=== PATIENT | female | born 1995 | race Caucasian/White ===

== ENCOUNTER 2017-10-13 12:20 | Emergency (ER) | payer OTHER ==
[2017-10-13 12:59] VITALS: O2SAT 97
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
[2017-10-13 14:21] VITALS: BP 109/70; PULSE 70
== END 2017-10-13 14:51 | disposition short-term general hospital (02) ==
LOC: ED 12:20
DX: T74.21XA Adult sexual abuse, confirmed, initial encounter (principal)
CPT/HCPCS: 99284

== ENCOUNTER 2017-11-20 20:59 | Emergency (ER) | payer OTHER ==
[~2017-11-20 20:59] MED LIST: STERILE WATER FOR INJECTION 20 ML IJ ONE
[2017-11-20] MEDS ORDERED: BACIGUENT PACKET TP ONE (22:02)
[2017-11-20] MEDS ORDERED: KEFZOL 1 GM IM ONE (22:02)
[2017-11-20 22:03] VITALS: BP 113/82; PULSE 96; O2SAT 100
[2017-11-20] MEDS ORDERED: BACTRIM DS TABLET PO ONE ×2 (22:03→22:09)
[2017-11-20] MEDS ORDERED: BACIGUENT PACKET ONE (22:09)
[2017-11-20] MEDS ORDERED: KEFZOL 1 GM ONE (22:09)
--- NOTE | 2017-11-20 22:10 | ERPHSYRPT ---
- History of Present Illness Time Seen by Provider: 11/20/17 21:26 Source: patient Exam Limitations: no limitations Patient Subjective Stated Complaint: states she thinks she has a spider bite to left side of neck and fifth digit left hand. Triage Nursing Assessment: has red raised area noted to left side of neck, no active drainage. also has red raised area to left fifth digit of hand. no drainage noted. Physician History: 22-year-old white female arrives with complaint of possible insect bite left side of neck and left hand symptoms for 4 days Patient states that she has a raised red lesion which is draining on the left side of her neck for 4 days also pain on her left hand dorsally at the left fifth MTP joint she has erythema to the left hand surrounding the MTP joint dorsally she states this is painful. She states she perhaps had abraded the lesion on the left side of her neck. She has not had fevers. Past medical history is negative past surgical history is negative. Social history positive tobacco use. Timing/Duration: day(s) Severity: moderate (4 days) Modifying Factors: Improves With: nothing Associated Symptoms: other (possible insect bites, raised lesion left side of neck which has opened, erythema raised area left dorsal hand fifth dorsal MCPjoint), No nausea, No vomiting, No abdominal pain, No shortness of breath, No heartburn, No diaphoresis, No cough, No chills, No chest pain, No fever, No headaches, No loss of appetite, No malaise, No rash, No syncope, No seizure, No weakness Allergies/Adverse Reactions: No Known Drug Allergies Allergy (Verified 11/20/17 21:20) Home Medications: Buspirone HCl 5 mg [Buspar 5 mg] 5 mg PO BIDPRN PRN 11/20/17 [History] Escitalopram Oxalate 10 mg [Lexapro 10 MG] 10 mg PO DAILY 11/20/17 [History] Trazodone HCl 50 mg [Desyrel 50 mg] 50 mg PO HS 11/20/17 [History] Hx Tetanus, Diphtheria Vaccination/Date Given: No Hx Influenza Vaccination/Date Given: No Hx Pneumococcal Vaccination/Date Given: No - Review of Systems Constitutional: No Fever, No Chills Eyes: No Symptoms Ears, Nose, & Throat: No Symptoms Respiratory: No Cough, No Dyspnea Cardiac: No Chest Pain, No Edema, No Syncope Abdominal/Gastrointestinal: No Abdominal Pain, No Nausea, No Vomiting, No Diarrhea Genitourinary Symptoms: No Dysuria Musculoskeletal: No Back Pain, No Neck Pain Skin: Other (raised lesion left side of neck, left dorsal hand symptoms for 4 days) Neurological: No Dizziness, No Focal Weakness, No Sensory Changes Psychological: No Symptoms Endocrine: No Symptoms All Other Systems: Reviewed and Negative - Past Medical History Pertinent Past Medical History: Yes Neurological History: No Pertinent History ENT History: No Pertinent History Cardiac History: No Pertinent History Respiratory History: No Pertinent History Endocrine Medical History: No Pertinent History Musculoskeletal History: No Pertinent History GI Medical History: No Pertinent History History: No Pertinent History Psycho-Social History: Anxiety, Depression Female Reproductive Disorders: No Pertinent History - Past Surgical History Past Surgical History: No Neuro Surgical History: No Pertinent History Cardiac: No Pertinent History Respiratory: No Pertinent History Gastrointestinal: No Pertinent History Genitourinary: No Pertinent History Musculoskeletal: No Pertinent History Female Surgical History: No Pertinent History - Social History Smoking Status: Current every day smoker How long have you smoked: 5 Exposure to second hand smoke: No Drug Use: none Patient Lives Alone: No - Female History Hx Last Menstrual Period: 11/15/17 Hx Now: No - Nursing Vital Signs Nursing Vital Signs: Initial Vital Signs Temperature 97.9 F 11/20/17 21:04 Pulse Rate 87 11/20/17 21:04 Respiratory Rate 16 11/20/17 21:04 Blood Pressure 107/70 11/20/17 21:04 O2 Sat by Pulse Oximetry 97 11/20/17 21:04 Pain Scale Pain Intensity 7 - Physical Exam General Appearance: mild distress Eye Exam: PERRL/EOMI, eyes nml inspection Neck Exam: normal inspection, supple, full range of motion, other (raised lesion1.5 1.0 cm left lateral neck erythematous open,no active drainage. Left dorsal hand slightly raised erythematous area overlying left dorsal M CP joint) Respiratory Exam: normal breath sounds, lungs clear, No respiratory distress Cardiovascular Exam: regular rate/rhythm, normal heart sounds, normal peripheral pulses Gastrointestinal/Abdomen Exam: soft, normal bowel sounds, No tenderness, No mass Back Exam: normal inspection, normal range of motion, No CVA tenderness, No vertebral tenderness Extremity Exam: normal inspection, normal range of motion, pelvis stable Neurologic Exam: alert Skin Exam: other (1 x 1.5 cm raised arealeft lateral neck with 0.3 cm opening no active draining, erythematous not hot, left hand erythema overlying left MCP joint #5 dorsally) Lymphatic Exam: No adenopathy SpO2 Interpretation: normal (100% ) SpO2: 100 Oxygen Delivery: Room Air - Course Nursing assessment & vital signs reviewed: Yes Ordered Tests: Active Orders 24 hr Category Date Time Status Wound Care STAT Care 11/20/17 22:02 Active CULTURE,WOUND Stat Lab 11/20/17 22:28 Received Medication Summary Discontinued Medications Generic Name Dose Route Start Last Admin Trade Name Abbey PRN Reason Stop Dose Admin Hydrocodone Bitart/Acetaminophen 1 tab 11/20/17 22:19 11/20/17 22:35 [place] 5/325 Mg PO 11/20/17 22:20 1 tab SENT HOME W/ PATIENT ONE Administration Hydrocodone Bitart/Acetaminophen Confirm 11/20/17 22:33 [place] 5/325 Mg Administered 11/20/17 22:34 Dose 1 tab .ROUTE .STK-MED ONE Bacitracin Zinc 0.9 gm 11/20/17 22:02 11/20/17 22:14 Baciguent Packet TP 11/20/17 22:03 0.9 gm STAT ONE Administration Bacitracin Zinc Confirm 11/20/17 22:09 Baciguent Packet Administered 11/20/17 22:10 Dose 1 gm .ROUTE .STK-MED ONE Cefazolin Sodium 1 g 11/20/17 22:02 11/20/17 22:14 Kefzol 1 Gm IM 11/20/17 22:03 1 g STAT ONE Administration Cefazolin Sodium Confirm 11/20/17 22:09 Kefzol 1 Gm Administered 11/20/17 22:10 Dose 1 g .ROUTE .STK-MED ONE Trimethoprim/Sulfamethoxazole 1 tab 11/20/17 22:03 11/20/17 22:14 Bactrim Ds Tablet PO 11/20/17 22:04 1 tab STAT ONE Administration Trimethoprim/Sulfamethoxazole Confirm 11/20/17 22:09 Bactrim Ds Tablet Administered 11/20/17 22:10 Dose 1 tab PO .STK-MED ONE - Progress Progress: improved Progress Note: 11/20/17 22:11 This is a 22-year-old white female who has a 1.51 cm raised area with central area opening on her left side of her neck which has been there for 4 days she also has. Erythema overlying the dorsal left hand MCP joint #5 again for 4 days. Patient thinks she might of been bitten by a spider. Will go ahead and clean the area have nurse obtaining cultures. There is nothing in the hand that can be drained. The left side of the neck appears to be open already and is draining. The lesion is at an area which would obviate opening the area at this time. And would not recommend incising this in the emergency room. Will give patient Kefzol 1 g IM. Bactrim 500 mg by mouth Will have patient go home with Keflex 500 mg orally every 6 hours for 7 days. And Bactrim DS one orally twice a day for 10 days. Will write for some [place] for pain. Patient will need to follow-up with her family doctor or local surgeon. Will provide patient with a list. - Departure Time of Disposition: 22:14 Departure Disposition: Home Clinical Impression: Cellulitis of left hand, Neck abscess Insect bite Qualifiers: Encounter type: initial encounter Qualified Code(s): W57.XXXA - Bitten or stung by nonvenomous insect and other nonvenomous arthropods, initial encounter Condition: Fair Critical Care Time: No Referrals: DOCTOR,NO FAMILY [Primary Care Provider] - Additional Instructions: Return home. Keflex 500 mg orally every 6 hours 7 days. Bactrim DS one orally twice a day for 10 days [place] 5/325 #10 one orally every 4 -6 hours as needed for pain. Clean area and apply bacitracin daily. Follow-up with your family doctor or surgeon (list). Return for acute distress or for severe symptoms. . Prescriptions: Hydrocodone/Acetaminophen [[place] 5-325 Tablet] 1 tab PO Q4-6HPRN PRN #10 tablet MDD 6 tablets PRN Reason: Pain
[2017-11-20] MEDS ORDERED: NORCO 5/325 MG PO ONE (22:19)
[2017-11-20] MEDS ORDERED: NORCO 5/325 MG ONE (22:33)
== END 2017-11-20 22:51 | disposition home or self-care (01) ==
LOC: ED 20:59
DX: L03.114 Cellulitis of left upper limb (principal); L02.11 Cutaneous abscess of neck; W57.XXXA Bitten or stung by nonvenomous insect and other nonvenomous arthropods, initial encounter
CPT/HCPCS: 87070; 87077; 87186; 96372; 99284; J0690; A9270-GY

== ENCOUNTER 2019-02-13 06:43 | Emergency (ER) | payer OTHER ==
[2019-02-13] MEDS ORDERED: xanAX 0.5 MG PO ONE (07:03)
[2019-02-13] MEDS ORDERED: Sodium Chloride 0.9% 1000 ML 1,000 ML IV STA (07:03)
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
[2019-02-13] MEDS ORDERED: ZOFRAN ODT 4 MG PO ONE (07:08)
[2019-02-13 07:24] LABS: Absolute Neutrophil Ct (ANC) 4.99 (1.4-6.9); BASOPHIL % 0.3 % (0.0-0.4); Basophil (Absolute #) 0.02 (0-0.4); Eosinophil % 2.6 % (0.00-5.0); Eosinophil (Absolute #) 0.19 (0-0.5); Hematocrit 41.6 % (35-47); Hemoglobin 13.9 gm/dl (12.0-16.0); Lymphocyte (Absolute #) 1.45 (1.0-4.6); Lymphocytes % 19.9 % (24.0-44.0); Mean Cell Volume 94.5 fl (78-100); Mean Corpuscular Hemoglobin 31.6 pg (26-32); Mean Corpuscular Hgb Concent. 33.4 g/dl (32-36); Mean Platelet Volume 9.3 fl (6-9.5); Monocyte (Absolute #) 0.63 (0.0-1.3); Monocytes % 8.7 % (0.0-12.0); Neutrophil % 68.5 % (36.0-66.0); Platelet Count 244 K/mm3 (150-450); Red Cell Distribution Width 13.4 % (11.5-14.0); White Blood Count 7.3 K/mm3 (4.0-10.5)
[2019-02-13] MEDS ORDERED: ZOFRAN ODT 4 MG ONE (07:30)
[2019-02-13] MEDS ORDERED: xanAX 0.5 MG ONE (07:30)
[2019-02-13 07:34] LABS: ALBUMIN 4.8 g/dL (3.5-5.0); ALKALINE PHOSPHATASE 60 U/L (38-126); ANION GAP 17.5 MEQ/L (5-15); BLOOD UREA NITROGEN 11 mg/dL (7-17); CHLORIDE 105 mmol/L (98-107); Carbon Dioxide 20 mmol/L (22-30); Creatinine 1 0.92 mg/dL (0.52-1.04); Glucose 180 mg/dL (74-106); Potassium 3.9 mmol/L (3.5-5.1); SGOT/AST 24 U/L (14-36); SGPT/ALT 15 U/L (0-35); SODIUM 139 mmol/L (137-145); Total Protein 7.7 g/dL (6.3-8.2)
[2019-02-13 07:38] LABS: ACETAMINOPHEN < 10 ug/ml (10-30); ETHYL ALCOHOL < 10 mg/dL (0-10); SALICYLATE < 1.0 mg/dL (2-20)
[2019-02-13 07:40] LABS: Appearance CLOUDY (CLEAR); Bacteria MODERATE /HPF (NEGATIVE); Bilirubin NEGATIVE (NEGATIVE); Blood NEGATIVE Ery/ul (0-5); Epithelial Cells RARE /HPF (FEW); Glucose NEGATIVE (NEGATIVE); Ketones SMALL (NEGATIVE); Leukocyte Esterase MODERATE (NEGATIVE); Mucus MANY /HPF (NEGATIVE); Nitrite POSITIVE (NEGATIVE); Protein,Urine Dip 100 (Negative); Specific Gravity 1.021 (1.005-1.025); Urobilinogen NEGATIVE mg/dL (0-1); WBC 26-50 /HPF (0-5)
[2019-02-13] MEDS ORDERED: BACTRIM DS TABLET PO STA (07:48)
[2019-02-13 07:53] LABS: Barbiturate,Urine NEGATIVE (NEGATIVE); Benzodiazepine,Urine NEGATIVE (NEGATIVE); Cocaine,Urine NEGATIVE (NEGATIVE); Methadone,Urine NEGATIVE (NEGATIVE); Opiate,Urine NEGATIVE (NEGATIVE); PCP,Urine NEGATIVE (NEGATIVE); THC,Urine POSITIVE (NEGATIVE)
[2019-02-13] MEDS ORDERED: BACTRIM DS TABLET PO ONE (08:12)
[2019-02-13 08:26] LABS: Amphetamine,Urine POSITIVE (NEGATIVE)
[2019-02-13 08:34] VITALS: BP 102/70; PULSE 118; O2SAT 98
--- NOTE | 2019-02-13 08:36 | XRAY ---
Indication: Pain following injury. Comparison: None 3 views of the right shoulder demonstrates normal bones, articulation, and soft tissues.
--- NOTE | 2019-02-13 08:36 | XRAY ---
Indication: Pain following injury. Comparison: None 2 views of the left ribs obtained. No bony, articular, or soft tissue abnormalities.
== END 2019-02-13 09:16 | disposition home or self-care (01) ==
LOC: ED 06:43
DX: F19.10 Other psychoactive substance abuse, uncomplicated (principal); S40.011A Contusion of right shoulder, initial encounter; M25.511 Pain in right shoulder; R07.81 Pleurodynia; W22.8XXA Striking against or struck by other objects, initial encounter; Y93.89 Activity, other specified; Y92.89 Other specified places as the place of occurrence of the external cause; Z79.899 Other long term (current) drug therapy
CPT/HCPCS: 36415; 71100; 73030; 80053; 80307; 81001; 84703; 85025; 87086; G0480; G0481; 99284; Q0162; A9270-GY

== ENCOUNTER 2020-07-21 18:36 | Emergency (ER) | payer OTHER ==
[2020-07-21] MEDS ORDERED: XYLOCAINE 1% HCL 20 ML MDV IJ ONE (19:09)
[2020-07-21] MEDS ORDERED: XYLOCAINE 1% HCL 20 ML MDV ONE (19:10)
[2020-07-21] MEDS ORDERED: BACIGUENT PACKET TP ONE (19:22)
[2020-07-21] MEDS ORDERED: BACIGUENT PACKET ONE (19:23)
[2020-07-21] MEDS ORDERED: KEFLEX 500 MG PO ONE (19:27)
[2020-07-21] MEDS ORDERED: KEFLEX 500 MG ONE (19:29)
--- NOTE | 2020-07-21 19:34 | ERPHSYRPT ---
- History of Present Illness Time Seen by Provider: 07/21/20 19:27 Source: patient Exam Limitations: no limitations Patient Subjective Stated Complaint: pt reports punching a window approx one hour [employer]. reports laceration to right arm. Triage Nursing Assessment: pt is aox3, pupils perrl, afebrile, resps easy and non labored, radial pulses strong and equal, cap refill < 3 seconds, approx 3x2 cm laceration to the right medial elbow. skin is well approximated, minimal bleeding at this time that is controlled. abrasions also noted to the right forearm and wrist. Physician History: 24 years old right-handed dominant female presented in the ER with chief complaint of right elbow laceration. Patient reports she got angry at something, placed on the glass window causing multiple superficial abrasions/cuts on the right forearm and a laceration on the medial aspect of her elbow mild to moderate pain with movements and palpation. No numbness tingling weakness or difficulty/limited range of motion at the elbow or distally. Up-to-date with tetanus. Timing/Duration: hour(s) (1), constant, sudden, improved Quality: painful Severity: mild Location: extremities Possible Causes: other Associated Symptoms: denies symptoms Allergies/Adverse Reactions: No Known Drug Allergies Allergy (Verified 07/21/20 18:54) Home Medications: Buspirone HCl 5 mg [Buspar 5 mg] 5 mg PO BIDPRN PRN 11/20/17 [History] Escitalopram Oxalate 10 mg [Lexapro 10 MG] 10 mg PO DAILY 11/20/17 [History] Trazodone HCl 50 mg [Desyrel 50 mg] 50 mg PO HS 11/20/17 [History] Hx Tetanus, Diphtheria Vaccination/Date Given: Yes Hx Influenza Vaccination/Date Given: No Hx Pneumococcal Vaccination/Date Given: No Immunizations Up to Date: Yes Travel Risk - International Travel Have you traveled outside of the country in past 3 weeks: No - Coronavirus Screening Are you exhibiting any of the following symptoms?: No Close contact with a COVID-19 positive Pt in past 14-21 Days: No - Vaccine Status Have you recieved a Covid-19 vaccination: No - Review of Systems Constitutional: No Symptoms Eyes: No Symptoms Ears, Nose, & Throat: No Symptoms Respiratory: No Symptoms Cardiac: No Symptoms Abdominal/Gastrointestinal: No Symptoms Musculoskeletal: Injury Skin: Skin Lesions Neurological: No Symptoms Psychological: Anxiety Endocrine: No Symptoms Hematologic/Lymphatic: No Symptoms Immunological/Allergic: No Symptoms - Past Medical History Pertinent Past Medical History: Yes Neurological History: No Pertinent History ENT History: No Pertinent History Cardiac History: No Pertinent History Respiratory History: No Pertinent History Endocrine Medical History: No Pertinent History Musculoskeletal History: No Pertinent History GI Medical History: No Pertinent History History: No Pertinent History Psycho-Social History: Anxiety, Depression Female Reproductive Disorders: No Pertinent History - Past Surgical History Past Surgical History: No Neuro Surgical History: No Pertinent History Cardiac: No Pertinent History Respiratory: No Pertinent History Gastrointestinal: No Pertinent History Genitourinary: No Pertinent History Musculoskeletal: No Pertinent History Female Surgical History: No Pertinent History - Social History Smoking Status: Current every day smoker How long have you smoked: 5 Exposure to second hand smoke: No Drug Use: none Patient Lives Alone: No - Female History Hx Last Menstrual Period: 07/21/2020 Hx Now: (unkn) - Nursing Vital Signs Nursing Vital Signs: Initial Vital Signs Temperature 98.2 F 07/21/20 18:39 Pulse Rate 97 H 07/21/20 18:39 Respiratory Rate 18 07/21/20 18:39 Blood Pressure 131/84 07/21/20 18:39 O2 Sat by Pulse Oximetry 97 07/21/20 18:39 Pain Scale Pain Intensity 3 - Physical Exam General Appearance: no apparent distress Eye Exam: PERRL/EOMI Ears, Nose, Throat Exam: normal ENT inspection, pharynx normal Neck Exam: normal inspection, non-tender, supple, full range of motion Respiratory Exam: normal breath sounds, lungs clear Cardiovascular Exam: regular rate/rhythm, normal heart sounds Extremity Exam: other (Superficial cuts right forearm. 2.5 cm T-shaped laceration right medial elbow with a small chunk of skin missing. No obvious foreign body retrieved. Not bone D. Involves the fat tissue. Intact range of motion at the right elbow, wrist and fingers.) Neurologic Exam: alert, oriented x 3, cooperative Skin Exam: normal color SpO2 Interpretation: normal SpO2: 97 Procedures - Laceration/Wound Repair Right Elbow Time of Procedure: 19:21 Wound Location: Right, upper arm Wound Length (cm): 2.5 Wound's Depth, Shape: superficial Wound Explored: clean Irrigated: Yes Hibiclens Prep: Yes Anesthesia: 1% Lidocaine Volume Anesthetic (ccs): 5 Wound Debrided: minimal Wound Repaired With: sutures Suture Size/Type: 4-0, prolene Number of Sutures: 5 Layer Closure?: No Sterile Dressing Applied?: Yes Ordered Tests: Active Orders 24 hr Category Date Time Status Wound Care STAT Care 07/21/20 19:22 Active ELBOW (MINIMUM 3 VIEWS) Stat Exams 07/21/20 Ordered Medication Summary Discontinued Medications Generic Name Dose Route Start Last Admin Trade Name Abbey PRN Reason Stop Dose Admin Bacitracin Zinc 0.9 gm 07/21/20 19:22 Baciguent Packet TP 07/21/20 19:23 STAT ONE Bacitracin Zinc Confirm 07/21/20 19:23 Baciguent Packet Administered 07/21/20 19:24 Dose 1 gm .ROUTE .STK-MED ONE Cephalexin HCl 500 mg 07/21/20 19:27 Keflex 500 Mg PO 07/21/20 19:28 STAT ONE Lidocaine HCl 10 ml 07/21/20 19:09 07/21/20 19:21 Xylocaine 1% Hcl 20 Ml Mdv IJ 07/21/20 19:10 10 ml STAT ONE Administration Lidocaine HCl Confirm 07/21/20 19:10 Xylocaine 1% Hcl 20 Ml Mdv Administered 07/21/20 19:11 Dose 10 ml .ROUTE .STK-MED ONE - Progress Progress: improved Progress Note: 07/21/20 Laceration is repaired. No obvious foreign body removed. X-rays are done which are negative for any obvious foreign body detected by me, official report is pending. No acute osseous abnormality. Given Keflex prophylactically. Recommended Tylenol ibuprofen to take as needed. Outpatient follow-up. Counseled pt/family regarding: diagnosis, need for follow-up, rad results - Departure Departure Disposition: Home Clinical Impression: Laceration of right elbow Qualifiers: Encounter type: initial encounter Qualified Code(s): S51.011A - Laceration without foreign body of right elbow, initial encounter Condition: Stable Critical Care Time: No Referrals: PAIGE TELLES),AUDREY SANCHEZ MD [Primary Care Provider] - (1-2 days for reevaluation. Suture removal in 10 days.) Instructions: Laceration Repair With Stitches (DC) Additional Instructions: Avoid exertional activities with right upper extremity. Use Tylenol/ibuprofen as needed. Keep it clean. Follow-up with primary care for reevaluation. Suture removal in 10 days. Return to ER for increasing pain, swelling, discharge, fever chills or difficulty movements of elbow. May need outpatient orthopedics surgery follow-up [facility] if has worsening pain to see if there is any piece of glass inside needing fluoroscopic removal. Prescriptions: Cephalexin Mh 500 mg [Keflex 500 mg] 500 mg PO TID #14 capsule
[2020-07-21 19:52] VITALS: O2SAT 100
[2020-07-21 20:39] VITALS: BP 131/76; PULSE 103
--- NOTE | 2020-07-22 08:45 | XRAY ---
Indication: Laceration. Comparison: None 3 view right elbow demonstrates medial soft tissue swelling/laceration without radiopaque foreign body. No other bony, articular, or soft tissue abnormalities.
== END 2020-07-21 20:39 | disposition home or self-care (01) ==
LOC: ED 18:36
DX: S51.011A Laceration without foreign body of right elbow, initial encounter (principal)
CPT/HCPCS: 12001; 73080; 96372; 99284; A9270-GY